=== PATIENT | male | born 1980 | race Caucasian/White ===

== ENCOUNTER 2021-04-25 19:20 | Emergency (ER) | payer OTHER, SELFPAY ==
--- NOTE | 2021-04-25 19:28 | ECG_ITS ---
Measurements Intervals [place] Rate: 60 P: 48 RI: 140 QRS: 50 QRSD: 92 T: 22 QT: 390 QTc: 392 Interpretive Statements SINUS RHYTHM BORDERLINE R WAVE PROGRESSION, ANTERIOR LEADS BORDERLINE T WAVE ABNORMALITY- INFERIOR LEADS BORDERLINE ECG Electronically Signed On 04-26-2021 16:06:33 CDT by Tyron Owens D.O.
[2021-04-25 19:40] LABS: Basophils Percent Auto 0.6 % (0.2-1.2); Eosinophils Percent Auto 0.6 % (0-4.4); Hematocrit 40.1 % (42.0-52.0); Hemoglobin 13.6 g/dL (14.0-18.0); Immature Granulocyte Absolute 0.01 K/mm3 (0.00-0.031); Immature Granulocyte Percent A 0.3 % (0-0.5); Lymphocytes Absolute Auto 1.14 K/mm3 (0.9-3.2); Lymphocytes Percent Auto 33.9 % (18.3-44.2); Mean Corpuscular HGB Conc 33.9 g/dl (32-36); Mean Corpuscular Hemoglobin 29.8 pg (26-34); Mean Corpuscular Volume 87.7 fl (80-100); Mean Platelet Volume 9.5 fl (7.4-10.4); Monocytes Absolute Auto 0.5 K/mm3 (0.1-0.6); Monocytes Percent Auto 15.5 % (2.6-8.5); Neutrophils Absolute Auto 1.7 K/mm3 (1.3-6.7); Neutrophils Percent Auto 49.1 % (45.5-73.1); Platelet Count Result 190 k/mm3 (150-375); Red Blood Count 4.57 M/mm3 (4.6-6.20); Red Cell Distribution Width 12.1 % (11.5-14.5); White Blood Count 3.4 K/mm3 (4.5-10.0)
[2021-04-25 19:41] VITALS: BP 106/67; PULSE 65; RESP 20; TEMP 37.2; O2SAT 98
[2021-04-25 19:51] LABS: Anion Gap 16 mmol/L (8-16); Blood Urea Nitrogen 14 mg/dL (9-20); Calcium 8.7 mg/dL (8.4-10.2); Carbon Dioxide 26 mmol/L (22-30); Chloride 94 mmol/L (98-107); Estimated CRCL calculation 100 ml/min; Estimated Glomerular Filt Rate > 60; Glucose 86 mg/dL (65-110); Potassium 4.3 mmol/L (3.4-5.0); Sodium 136 mmol/L (137-145)
[2021-04-25 20:48] VITALS: TEMP 36.3
[2021-04-25 22:03] LABS: EDCOVIDSCREEN Positive (Negative)
[2021-04-25] MEDS: ONDANSETRON HCL ODT 4 MG TABLET PO (22:06)
--- NOTE | 2021-04-25 22:16 | ED.GENADULT ---
HPI - General Adult General Chief complaint: Dizziness Stated complaint: high fever, dizziness, stomach ache Time Seen by Provider: 04/25/21 21:00 History of Present Illness HPI narrative: Patient is a 41-year-old male who presents ER with concern for COVID-19. Symptoms going on for 2 days. Associated with fevers and chills. He has headache with loss of taste and smell. No chest pain or chest pressure. Does have some mild abdominal discomfort with nausea. No known sick contacts. He is unvaccinated. Related Data Allergies Allergy/AdvReac Type Severity Reaction Status Date / Time No Known Allergies Allergy Verified 04/25/21 20:50 Review of Systems Review of Systems: All systems reviewed & are unremarkable except as noted in HPI and below Constitutional: Constitutional: Reports chills, Reports fatigue and Reports fever(s) ENT: Denies nasal congestion and Reports sore throat Cardiovascular: Cardiovascular: Denies chest pain and Denies radiating jaw, neck or arm pain Respiratory: Respiratory: Denies chest congestion, Reports cough, Denies dyspnea and Denies wheezing Gastrointestinal: Gastrointestinal: Reports abdominal pain, Reports nausea and Denies vomiting PMFSH Past Medical History Medical History (Updated 04/25/21 @ 22:19 by Kb Montemayor MD) Healthy adult male Surgical History Surgical History (Updated 04/25/21 @ 22:17 by Kb Montemayor MD) No history of previous surgery Exam Narrative: GENERAL: Well-appearing, well-nourished, and in no acute distress. HEAD: Normocephalic, atraumatic. ENT: Mucous membranes moist. Pharyngeal erythema or tonsillar exudate. Uvula midline and nonedematous. NECK: Supple. Mild anterior cervical chain lymphadenopathy. CHEST: Clear to auscultation. No respiratory distress. HEART: Regular rate and rhythm. Normal peripheral pulses. ABDOMEN: Soft, nontender, nondistended. EXTREMITIES: Normal range of motion. No edema. NEURO: Alert and oriented x3. PSYCH: Normal mood and affect. Course Course Emergency Course: Patient informed results. Discussed return precautions. Discharge home. Vital Signs Vital signs: Vital Signs Temperature 98.9 F 04/25/21 19:41 Pulse Rate 65 04/25/21 19:41 Respiratory Rate 20 04/25/21 19:41 Blood Pressure 106/67 04/25/21 19:41 Pulse Oximetry 98 04/25/21 19:41 Temperature 97.4 F L 04/25/21 20:48 Pulse Rate 65 04/25/21 19:41 Respiratory Rate 20 04/25/21 19:41 Blood Pressure 106/67 04/25/21 19:41 Pulse Oximetry 98 04/25/21 19:41 Medical Decision Making Vital Signs Vital Signs: Vital Signs Temperature 98.9 F 04/25/21 19:41 Pulse Rate 65 04/25/21 19:41 Respiratory Rate 20 04/25/21 19:41 Blood Pressure 106/67 04/25/21 19:41 Pulse Oximetry 98 04/25/21 19:41 Temperature 97.4 F L 04/25/21 20:48 Pulse Rate 65 04/25/21 19:41 Respiratory Rate 20 04/25/21 19:41 Blood Pressure 106/67 04/25/21 19:41 Pulse Oximetry 98 04/25/21 19:41 Lab Data Result diagrams: 04/25/21 19:35 04/25/21 19:35 Labs: Lab Results 04/25/21 04/25/21 04/25/21 Range/Units 19:35 19:35 21:26 WBC 3.4 L (4.5-10.0) K/mm3 RBC 4.57 L (4.6-6.20) M/mm3 Hgb 13.6 L (14.0-18.0) g/dL Hct 40.1 L (42.0-52.0) % MCV 87.7 (80-100) fl MCH 29.8 (26-34) pg MCHC 33.9 (32-36) g/dl RDW 12.1 (11.5-14.5) % Plt Count 190 (150-375) k/mm3 MPV 9.5 (7.4-10.4) fl Immature Gran % (Auto) 0.3 (0-0.5) % Neut % (Auto) 49.1 (45.5-73.1) % Lymph % (Auto) 33.9 (18.3-44.2) % Citrus % (Auto) 15.5 H (2.6-8.5) % Eos % (Auto) 0.6 (0-4.4) % Baso % (Auto) 0.6 (0.2-1.2) % Lymph # (Auto) 1.14 (0.9-3.2) K/mm3 Citrus # (Auto) 0.5 (0.1-0.6) K/mm3 Eos # (Auto) 0.0 (0-0.3) K/mm3 Baso # (Auto) 0.0 (0.0-0.1) K/mm3 Abs Immat Gran (auto) 0.01 (0.00-0.031) K/mm3 Absolute Neuts (auto) 1.7 (1.3-6.7) K/mm
[2021-04-25 22:54] VITALS: BP 108/79; PULSE 58; RESP 18; TEMP 36.6; O2SAT 99
== END 2021-04-25 22:36 | disposition home or self-care (01) ==
PROVIDERS: Family Medicine; Emergency Provider Emergency Medicine
DX: U07.1 COVID-19 (principal)
CPT/HCPCS: 36415; 80048; 85025; 87426; 93005; 99283; A9270; C9803

== ENCOUNTER 2022-05-16 21:10 | Emergency (ER) | payer OTHER, SELFPAY ==
[2022-05-16 21:16] VITALS: BP 156/89; PULSE 76; RESP 16; TEMP 36.8; O2SAT 99
--- NOTE | 2022-05-16 22:11 | PC.NURSE ---
patient left without being seen and before xray. states he will come back if needed.
== END 2022-05-16 22:11 | disposition left against medical advice (07) ==
DX: S69.92XA Unspecified injury of left wrist, hand and finger(s), initial encounter (principal)
CPT/HCPCS: 99199

== ENCOUNTER 2023-06-16 15:49 | Emergency (ER) | payer OTHER, SELFPAY ==
[2023-06-16 16:05] VITALS: BP 134/96; PULSE 80; RESP 16; TEMP 36.9; O2SAT 100
[2023-06-16 16:06] VITALS: BP 134/96; PULSE 80; RESP 16; TEMP 36.9; O2SAT 100
--- NOTE | 2023-06-16 16:12 | ED.EAR ---
HPI - Ear Problem General Chief complaint: Ear Stated complaint: right ear pain,tooth pain left/right side Time Seen by Provider: 06/16/23 16:12 Source: patient Mode of arrival: ambulatory Limitations: no limitations History of Present Illness HPI Narrative: 43 yo M presents with c/o dental pain. Reports multiple broken teeth. Often gets bubble to gum that he pops open himself . Is on waiting list at [facility] dental school. Is hoping to get several teeth pulled. Afebrile. All systems reviewed and negative except as noted above. Related Data Allergies Allergy/AdvReac Type Severity Reaction Status Date / Time erythromycin base Allergy Unknown Unknown Verified 06/16/23 16:05 Review of Systems Review of Systems: CONSTITUTIONAL: Denies fever, chills, or sweats. EYES: Denies visual changes, redness, or discharge. ENT: Denies rhinorrhea, congestion, sore throat, or otalgia. Reports dental pain CARDIOVASCULAR: Denies chest pain, palpitations, or edema. RESPIRATORY: Denies cough or dyspnea. GASTROINTESTINAL: Denies abdominal pain, nausea, vomiting, or diarrhea. GENITOURINARY: Denies dysuria or hematuria. SKIN: Denies rash or itching. MUSCULOSKELETAL: Denies back pain, joint pain, or myalgia. NEUROLOGIC: Denies headache, numbness, or weakness. PSYCHIATRIC: Denies anxiety or depression. All other systems reviewed are negative, except as documented in HPI. [facility] Past Medical History Medical History (Updated 06/16/23 @ 16:17 by Gracy Novoa NP) Healthy adult male Surgical History Surgical History (System 10/19/21 @ 16:26 by Michelle Gaspar) No history of previous surgery Comments At time of signature, agree with nursing past medical, surgical, social and family history. There is no relevant family history pertinent to the presenting complaint. Exam Narrative: GENERAL: This is a well-nourished, well-developed patient, in no apparent distress. HEAD: normocephalic, atraumatic. EYES: PERRL. Sclera clear/white. Vision is grossly intact. EARS: External ears normal, auditory canals clear and without drainage, TMs normal without perforation. Hearing grossly intact. NOSE: External nose normal THROAT: Mucous membranes moist, posterior pharynx clear. MOUTH: multiple decayed/broken teeth. black coloring at the base of several upper and lower teeth. some teeth are broken down to gumline. some swelling and redness to gums but no abscess noted. NECK: Neck supple, non-tender without lymphadenopathy, masses or thyromegaly. CARDIOVASCULAR: Regular rate and rhythm without murmurs, gallops, or rubs. RESPIRATORY: Clear to auscultation. Breath sounds equal bilaterally. No wheezes, rales, or rhonchi. SKIN: warm, Dry, intact with no suspicious lesions or rash, good texture and turgor. NEURO: awake, alert, and oriented to person, place and time. There were no obvious focal neurologic abnormalities. EXTREMITIES: No joint tenderness, effusion, or edema noted. Course Course Level of Care: Express Care Visit Vital Signs Vital signs: Vital Signs Temperature 36.9 C 06/16/23 16:05 Pulse Rate 80 06/16/23 16:05 Respiratory Rate 16 06/16/23 16:05 Blood Pressure 134/96 H 06/16/23 16:05 Pulse Oximetry 100 06/16/23 16:05 Oxygen Delivery Room Air 06/16/23 16:05 Temperature 36.9 C 06/16/23 16:06 Pulse Rate 80 06/16/23 16:06 Respiratory Rate 16 06/16/23 16:06 Blood Pressure 134/96 H 06/16/23 16:06 Pulse Oximetry 100 06/16/23 16:06 Oxygen Delivery Room Air 06/16/23 16:06 reviewed Medical Decision Making MDM Narrative Medical decision making narrative: Patient is aware of diagnosis, understands and agrees to treatment plan. Anticipatory guidance given. Patient agrees to follow-up as directed and is aware of reasons to seek care at the emergency department. Portions of this record may have been created with voice recognition software given dental referral for Ousmane PRASAD and Juan David booker
== END 2023-06-16 16:20 | disposition home or self-care (01) ==
PROVIDERS: Emergency Provider Nurse Practitioner Family
DX: K04.7 Periapical abscess without sinus (principal); H65.03 Acute serous otitis media, bilateral
CPT/HCPCS: 99213; G0463

== ENCOUNTER 2023-08-22 18:45 | Emergency (ER) | payer OTHER, SELFPAY ==
[2023-08-22 19:04] VITALS: BP 123/79; PULSE 83; RESP 16; TEMP 36.2; O2SAT 99
--- NOTE | 2023-08-22 19:15 | ED.DENTAL ---
HPI - Dental/Oral General Chief complaint: Dental/Oral Stated complaint: tooth issue Source: patient Mode of arrival: ambulatory History of Present Illness HPI Narrative: 43-year-old male presented for complaint of left lower dental pain for about 3 days. He has poor dentition throughout, and plans to follow up with the dental school but is on the waiting list. Taking ibuprofen for symptoms. MD Complaint: tooth pain Related Data Allergies Allergy/AdvReac Type Severity Reaction Status Date / Time erythromycin base Allergy Intermediate Vomiting Verified 08/22/23 19:12 Review of Systems Review of Systems: CONSTITUTIONAL: Denies body aches, fever, chills ENT: Denies rhinorrhea, congestion, sore throat, or otalgia. Reports dental pain CARDIOVASCULAR: Denies chest pain, palpitations RESPIRATORY: Denies cough or dyspnea. SKIN: Denies rash, itching, or wounds. MUSCULOSKELETAL: Denies myalgia. NEUROLOGIC: Denies headache, numbness, tingling, or weakness. [facility] Past Medical History Medical History Healthy adult male Surgical History Surgical History No history of previous surgery Comments At time of signature, I have reviewed and agree with nursing past medical, surgical, social and family history unless otherwise noted. Please see nursing chart for further information. There is no relevant family history pertinent to the presenting complaint Exam Narrative: GENERAL: Appears in mild pain; no acute distress. EYES: EOMI. No redness or drainage. Conjunctivae normal. ENT: Dental pain location of #20-22, teeth are broken and black in color; minimal swelling to gum, mild tenderness with palpation. poor dentition throughout. Also reports occasional pain #4, broken to gumline; no swelling or apparent abscess. Mucous membranes pink and moist. TMs normal bilaterally. Throat normal. Uvula midline. NECK: Normal AROM. No lymphadenopathy or induration below mandible. CHEST: Clear to auscultation. HEART: Regular rate and rhythm. No murmur appreciated. SKIN: Warm, dry, no rash. Normal skin turgor. NEURO: Alert and oriented Course Course Emergency Course: Patient is aware of diagnosis, understands and agrees to treatment plan. Anticipatory guidance given. Patient agrees to follow-up as directed and is aware of reasons to seek care at the emergency department. Portions of this record may have been created with voice recognition software Level of Care: Express Care Visit Vital Signs Vital signs: Vital Signs Temperature 97.2 F L 08/22/23 19:04 Pulse Rate 83 08/22/23 19:04 Respiratory Rate 16 08/22/23 19:04 Blood Pressure 123/79 08/22/23 19:04 Pulse Oximetry 99 08/22/23 19:04 Oxygen Delivery Room Air 08/22/23 19:04 Temperature 97.2 F L 08/22/23 19:04 Pulse Rate 83 08/22/23 19:04 Respiratory Rate 16 08/22/23 19:04 Blood Pressure 123/79 08/22/23 19:04 Pulse Oximetry 99 08/22/23 19:04 Oxygen Delivery Room Air 08/22/23 19:04 MDM - Dental/Oral MDM Narrative Medical decision making narrative: Patients pain and complaint coupled with physical findings are consistent with dentalgia. No apparent abscess. There are no focal signs of space occupying lesions that are compromising to the airway; no dysphagia, odynophagia, dysphonia, or dyspnea. No uvular deviation or soft palate edema. Patient is non-toxic appearing. The floor of the mouth is soft with no signs of Rosendo's Angina; no induration below mandible, no neck pain. Patient is without trismus or drooling and able to swallow secretions. Discussed physical exam findings. Advised supportive measures and signs/symptoms to go to the ER. Pt is appropriate for outpt treatment and f/u. Differential Diagnosis Differential diagnosis: Likely gingival abscess, dental caries, toothache, dental abscess, fracture of tooth an
== END 2023-08-22 19:24 | disposition home or self-care (01) ==
PROVIDERS: Emergency Provider Nurse Practitioner Family
DX: K02.9 Dental caries, unspecified (principal)
CPT/HCPCS: 99213; G0463

== ENCOUNTER 2023-12-02 09:08 | Emergency (ER) | payer OTHER, SELFPAY ==
[2023-12-02 09:15] VITALS: BP 150/96; PULSE 60; RESP 16; TEMP 36.4; O2SAT 100
--- NOTE | 2023-12-02 10:00 | ED.DENTAL ---
HPI - Dental/Oral General Chief complaint: Dental/Oral Stated complaint: tooth lower left Time Seen by Provider: 12/02/23 09:18 History of Present Illness HPI Narrative: 43-year-old male presents to the emergency department for left lower tooth pain that started yesterday. Patient reports he has had intermittent dental pain to the left lower jaw for quite a while. He is on a wait list for [facility] to have his teeth extracted on this side. He states he has had use intermittent antibiotics secondary to pain. He is requesting a nerve block. He denies difficulty swallowing or breathing, fever, vomiting, trismus. Related Data Allergies Allergy/AdvReac Type Severity Reaction Status Date / Time erythromycin base Allergy Intermediate Vomiting Verified 12/02/23 09:17 Review of Systems Review of Systems: CONSTITUTIONAL: Denies fever, chills, or sweats. EYES: Denies visual changes, redness, or discharge. ENT: See HPI CARDIOVASCULAR: Denies chest pain, palpitations, or edema. RESPIRATORY: Denies cough or dyspnea. GASTROINTESTINAL: Denies abdominal pain, nausea, vomiting, or diarrhea. GENITOURINARY: Denies dysuria or hematuria. SKIN: Denies rash or itching. MUSCULOSKELETAL: Denies back pain, joint pain, or myalgia. NEUROLOGIC: Denies headache, numbness, or weakness. PSYCHIATRIC: Denies anxiety or depression. [facility] Past Medical History Medical History Healthy adult male Surgical History Surgical History No history of previous surgery Exam Narrative: GENERAL: Well-appearing, well-nourished, and in no acute distress. HEAD: Normocephalic, atraumatic. EYES: PERRLA and EOMI. ENT: Nares clear, no rhinorrhea or epistaxis. Mucous membranes moist. Severely carried and necrotic teeth along the left lower jaw including tooth 18., 19, 20 and 21. Mild amount of erythema and edema to the gum line. No periapical abscess or facial edema. No submandibular edema. No trismus. Patient tolerating secretions and speaking in full sentences. No airway compromise. Posterior pharynx without erythema or edema, uvula is midline. Floor of mouth is soft without crepitus. NECK: Supple. CHEST: Clear to auscultation. No respiratory distress. HEART: Regular rate and rhythm. No murmur heard. Normal peripheral pulses. EXTREMITIES: Normal range of motion. No edema. SKIN: Warm, dry, no rash. NEURO: No focal deficits. Alert and oriented x3 Course Vital Signs Vital signs: Vital Signs Temperature 97.6 F 12/02/23 09:15 Pulse Rate 60 12/02/23 09:15 Respiratory Rate 16 12/02/23 09:15 Blood Pressure 150/96 H 12/02/23 09:15 Pulse Oximetry 100 12/02/23 09:15 Oxygen Delivery Room Air 12/02/23 09:15 Temperature 97.6 F 12/02/23 09:15 Pulse Rate 60 12/02/23 09:15 Respiratory Rate 16 12/02/23 09:15 Blood Pressure 150/96 H 12/02/23 09:15 Pulse Oximetry 100 12/02/23 09:15 Oxygen Delivery Room Air 12/02/23 09:15 Procedures Nerve Block Nerve Block 1: Nerve block date: 12/02/23 Nerve block time: 11:02 Time out performed: Yes Local Anesthetic: bupivacaine 0.25% Amount of anesthesia used (mL): 1.5 Side: left Intraoral Nerve Block: inferior alveolar Procedure Successful: Yes Patient Tolerated Procedure: well Complications: none MDM - Dental/Oral MDM Narrative Medical decision making narrative: 43-year-old male presents to emergency department for left lower jaw dental pain since yesterday. Triage vital significant for blood pressure 150/96, otherwise unremarkable. He is afebrile and nontoxic appearing. Exam is significant for the above. No airway compromise, is able tolerate secretions. No evidence of deep space infection. Was given a dose of Augmentin here, remainder sent to the pharmacy. He was given a infra-alveolar block with
[2023-12-02] MEDS: AMOXICILLIN/CLAVULANATE K 875-125 MG TAB 1 TABLET PO (10:10)
[2023-12-02 11:13] VITALS: BP 132/86; PULSE 72; RESP 15; O2SAT 98
== END 2023-12-02 11:14 | disposition home or self-care (01) ==
PROVIDERS: Emergency Provider Physician Assistant
DX: K02.9 Dental caries, unspecified (principal)
CPT/HCPCS: 64400; 64999; 99283; A9270

== ENCOUNTER 2024-02-17 17:59 | Emergency (ER) | payer OTHER, SELFPAY ==
--- NOTE | 2024-02-17 18:01 | ED.DENTAL ---
HPI - Dental/Oral General Chief complaint: Dental/Oral Stated complaint: tooth pain left side,right eye red Time Seen by Provider: 02/17/24 18:01 Source: patient Mode of arrival: ambulatory Limitations: no limitations History of Present Illness HPI Narrative: Theo is a 43-year-old male patient presenting to the clinic today with complaints of dental pain on the left lower side and right eye redness. He is also requesting a refill of his fluticasone inhaler. He denies any fever chills. States he woke up this morning with his eyes croupy and some yellow discharge coming from the right eye and is now noticing some discharge coming from the left eye. States he has a dental infection to the left lower teeth. He has severe fracture decayed lower bottom teeth that are need to be pulled. He states he has not been able to yet get into a dentist. Related Data Allergies Allergy/AdvReac Type Severity Reaction Status Date / Time erythromycin base Allergy Intermediate Vomiting Verified 12/02/23 09:17 Review of Systems Review of Systems: Pertinent positives per HPI. Patient denies any fever, chills, rash, headache, visual changes, dizziness, cough, runny nose, sore throat, shortness of breath, chest pain, palpitations, nausea, vomiting, diarrhea, constipation, abdominal pain, or any urinary issues. PMFSH Past Medical History Medical History Healthy adult male Surgical History Surgical History No history of previous surgery Comments At the time of my signature, I reviewed and agree with the nursing past medical, surgical, social, and family history. There is no relevant family history pertinent to the patient complaint. Exam Narrative: General: Well-developed, well nourished, in no apparent distress Head: Normocephalic, atraumatic Eyes: Pupils equally round and reactive to light bilaterally, EOM intact, sclera and conjunctive injected with yellow mucopurulent discharge, mild lids swelling Ears: TMs intact and clear, ear canals clear, no drainage, grossly hearing normal. Nose: Nares patent, clear discharge, no inflammation, no sinus tenderness. Mouth: Oropharynx without lesions or masses, poor dentition, MMM. Multiple decayed teeth with redness and swelling of the gums to the left lower jaw Neck: Supple, trachea midline, no enlargement of anterior or posterior cervical nodes, no thyroid masses or goiter palpable. Cardio: Regular rate and rhythm, s1 and s2 normal, no murmur appreciated. Resp: Clear to auscultation bilaterally anteriorly and posteriorly, no rhonchi, rales, wheezing or rubs Course Course Emergency Course: Portions of this record may have been created with voice recognition software. Level of Care: Express Care Visit Vital Signs Vital signs: Vital signs reviewed MDM - Dental/Oral MDM Narrative Medical decision making narrative: At the time of visit patient is resting comfortably on the exam table. Patient appears to be nontoxic. Plan: I suspect patient has conjunctivitis with the dental infection. Prescription for Augmentin and polymyxin eyedrops were sent to the pharmacy. Patient is also requesting refill of his fluticasone inhaler. This was sent to the pharmacy as well. Supportive measures were discussed with the patient and they voiced understanding discharge instructions and agrees to treatment plan. Return precautions reviewed Differential Diagnosis Differential diagnosis: Likely gingival abscess, dental caries, toothache, dental abscess, fracture of tooth, aphthous ulcer and other (Conjunctivitis, asthma) Discharge Plan Discharge Clinical Impression: Dental infection Conjunctivitis Qualifiers: Conjunctivitis type: acute Acute conjunctivitis type: bacterial Laterality: bilateral Qualified Code(s): H10.33 - Unspecified acute conjunctivitis, bilateral [place]
[2024-02-17 18:05] VITALS: BP 122/82; PULSE 81; RESP 16; TEMP 36.7; O2SAT 100
[2024-02-17 18:11] VITALS: BP 122/82; PULSE 81; RESP 16; TEMP 36.7; O2SAT 100
== END 2024-02-17 18:20 | disposition home or self-care (01) ==
PROVIDERS: Emergency Provider Nurse Practitioner Family
DX: K04.7 Periapical abscess without sinus (principal); H10.33 Unspecified acute conjunctivitis, bilateral
CPT/HCPCS: 99213; G0463

== ENCOUNTER 2024-03-26 19:22 | Emergency (ER) | payer OTHER, SELFPAY ==
[2024-03-26 19:30] VITALS: BP 135/86; PULSE 70; RESP 16; TEMP 36.8; O2SAT 100
--- NOTE | 2024-03-26 19:38 | ED.DENTAL ---
HPI - Dental/Oral General Chief complaint: Dental/Oral Stated complaint: Dental Pain Time Seen by Provider: 03/26/24 19:38 Mode of arrival: ambulatory Limitations: no limitations History of Present Illness HPI Narrative: 44-year-old male presents with concern for left lower dental pain. He reports he has had problems in that area of his mouth for quite some time, he has got several broken teeth. He has been trying to get into a dentist but is not had any luck. MD Complaint: tooth pain Related Data Home Medications Medication Instructions Recorded Confirmed fluticasone propionate 44 1 puff inhalation BID 03/26/24 03/26/24 mcg/actuation HFA aerosol inhaler Allergies Allergy/AdvReac Type Severity Reaction Status Date / Time erythromycin base Allergy Intermediate Vomiting Verified 03/26/24 19:23 Review of Systems Review of Systems: CONSTITUTIONAL: Denies malaise, chills, sweats, or fever. EYES: Denies visual changes ENT: Denies rhinorrhea, congestion, sinus pain, otalgia or sore throat. Reports left lower dental pain CARDIOVASCULAR: Denies chest pain, palpitations RESPIRATORY: Denies cough or dyspnea. SKIN: Denies rash or itching. MUSCULOSKELETAL: Denies myalgia. NEUROLOGIC: Denies numbness, weakness, or headache. All systems reviewed & are unremarkable except as noted in HPI and below PMFSH Past Medical History Medical History Healthy adult male Surgical History Surgical History No history of previous surgery Comments At time of signature, agree with nursing past medical, surgical, social and family history. There is no relevant family history pertinent to the presenting complaint Exam Narrative: GENERAL: Well-appearing, well-nourished, and in no acute distress. HEAD: Normocephalic, atraumatic. EYES: PERRLA, sclera clear ENT: Nares clear, turbinates pink, no rhinorrhea or epistaxis. Mucous membranes moist. TM pearly sanford with sharp light reflex bilaterally; no tragal tenderness. Oropharynx without erythema or lesions. Tonsils not enlarged and without exudate. Missing teeth, broken teeth, caries NECK: Supple. No lymphadenopathy. CHEST: No respiratory distress. Speaks in full sentences. HEART: Regular rate and rhythm. SKIN: Warm, dry, no visible rash. NEURO: Alert and oriented x3. PSYCH: Normal mood and affect Course Course Emergency Course: Patient is aware of diagnosis, understands and agrees to treatment plan. Anticipatory guidance given. Patient agrees to follow-up as directed and is aware of reasons to seek care at the emergency department. Portions of this record may have been created with voice recognition software Level of Care: Express Care Visit Vital Signs Vital signs: Vital Signs Temperature 98.3 F 03/26/24 19:30 Pulse Rate 70 03/26/24 19:30 Respiratory Rate 16 03/26/24 19:30 Blood Pressure 135/86 03/26/24 19:30 Pulse Oximetry 100 03/26/24 19:30 Oxygen Delivery Room Air 03/26/24 19:30 Temperature 98.3 F 03/26/24 19:30 Pulse Rate 70 03/26/24 19:30 Respiratory Rate 16 03/26/24 19:30 Blood Pressure 135/86 03/26/24 19:30 Pulse Oximetry 100 03/26/24 19:30 Oxygen Delivery Room Air 03/26/24 19:30 Reviewed. MDM - Dental/Oral MDM Narrative Medical decision making narrative: I evaluated this in the [facility] care. History is obtained from patient who is an independent historian and physical exam was performed.? Available medical records were reviewed. ? Exam findings and relevant testing show no acute concerns or changes; patient is non-toxic appearing and is in no distress. Patients pain and complaint coupled with physical findings are consistant with dentalgia. There are no focal signs of space occupying lesions that are compromising to the airway; no dysphagia, odynophagia, dysphonia, or dyspnea. No uvular de
== END 2024-03-26 19:56 | disposition home or self-care (01) ==
PROVIDERS: Emergency Provider Nurse Practitioner
DX: K08.89 Other specified disorders of teeth and supporting structures (principal)
CPT/HCPCS: 99213; G0463

== ENCOUNTER 2024-06-04 19:46 | Emergency (ER) | payer OTHER, SELFPAY ==
[2024-06-04 19:46] VITALS: BP 134/75; PULSE 71; RESP 18; TEMP 36.8; O2SAT 100
--- NOTE | 2024-06-04 19:51 | ED.URI ---
HPI - URI/Sore Throat General Chief Complaint: Upper Respiratory Infection Stated Complaint: Sinus/Fever Time Seen by Provider: 06/04/24 19:54 Source: patient, RN notes reviewed and old records reviewed Mode of arrival: ambulatory Limitations: no limitations History of Present Illness HPI Narrative: 44-year-old male presents to the [facility] with complaints of cough, congestion for 1 week. Reports intermittent shortness of breath. Reports family members with similar symptoms Onset (ago): week(s) (1) Treatments prior to arrival: cold medicine Related Data Allergies Allergy/AdvReac Type Severity Reaction Status Date / Time erythromycin base Allergy Intermediate Vomiting Verified 06/04/24 19:48 Review of Systems Review of Systems: All systems reviewed & are unremarkable except as noted in HPI and below Constitutional: Constitutional: Reports no additional constitutional complaints Eyes: Eyes: Reports no additional eye complaints ENT: Reports system reviewed and no additional complaints, except as documented Cardiovascular: Cardiovascular: Reports no additional cardiovascular complaints, Denies chest pain and Denies dyspnea Respiratory: Respiratory: Reports as per HPI, Reports chest congestion, Reports cough and Reports dyspnea Gastrointestinal: Gastrointestinal: Reports no additional gastrointestinal complaints, Denies abdominal pain, Denies nausea and Denies vomiting Musculoskeletal: Musculoskeletal: Reports no additional musculoskeletal complaints Integumentary/Breasts: Skin/Breast: Reports system reviewed and no additional complaints, except as docu Neurologic: Reports system reviewed and no additional complaints, except as documented Psychiatric: Psychiatric: Reports no additional psychiatric complaints Allergic/Immunologic: Allergic/Immunologic: Reports no additional allergic/immunologic complaints PMFSH Past Medical History Medical History Healthy adult male Surgical History Surgical History No history of previous surgery Social History Social History (Updated 06/04/24 @ 20:05 by Giselle Olson APRN) Living arrangements: with family Gender identity (if verbalized by the patient): Male Comments At the time of my signature, I reviewed and agree with the nursing past medical, surgical, social, and family history. There is no relevant family history pertinent to the patient complaint. Exam Const: General: cooperative, healthy appearing, comfortable, no acute distress, well developed, alert and well nourished Nutritional Appearance: well nourished Orientation/consciousness: patient oriented x3 Limitations: no limitations HENMT: Head: normal to inspection Ears: hearing grossly normal bilaterally, external ears normal, TM's normal bilaterally, EAC's normal, mastoids normal and no periauricular adenopathy Face/Nose/Sinus: Normal external nose present, normal facial exam and face symmetric Face and sinus: normal facial exam and face symmetric Throat: posterior oropharynx normal, tonsils normal, uvula midline and no uvular edema Eyes: General: appearance normal, both eyes and all related structures Alignment and Position: alignment normal Periorbital: periorbital findings normal Neck: Neck: normal visual inspection, full ROM, no lymphadenopathy and no meningeal signs Chest: Chest palpation & inspection: normal inspection of the chest Resp: Effort & Inspection: normal respiratory effort, able to speak in complete sentences and Actively coughing Auscultation: clear to auscultation bilaterally, no crackles, no rales, no rhonchi and no wheezes Cardio: Rate: regular rate Rhythm: regular rhythm Skin: General skin exam: normal color and no rashes or lesions noted Lesions: no lesions Rashes: no rashes Trauma: no lacerations or abrasions Wounds: no wounds Neuro: General: patient ronal
[2024-06-04 20:11] LABS: EDCOVIDSCREEN Negative (Negative); EDINFLUASCREEN Negative (Negative); EDINFLUBSCREEN Negative (Negative)
== END 2024-06-04 20:15 | disposition home or self-care (01) ==
PROVIDERS: Emergency Provider Nurse Practitioner
DX: J40 Bronchitis, not specified as acute or chronic (principal); Z20.822 Contact with and (suspected) exposure to COVID-19
CPT/HCPCS: 87426; 87804; 99213; G0463

== ENCOUNTER 2024-07-15 19:50 | Emergency (ER) | payer OTHER, SELFPAY ==
[2024-07-15 19:57] VITALS: BP 113/77; PULSE 74; RESP 16; TEMP 35.9; O2SAT 99
--- NOTE | 2024-07-15 20:13 | ED_ITS ---
HPI - Nausea/Vomiting/Diarrhea General Chief complaint: Upper Respiratory Infection Stated complaint: throwing up,diarrhea,SHEPPARD Source: patient, RN notes reviewed and old records reviewed Mode of arrival: ambulatory Limitations: no limitations History of Present Illness HPI Narrative: Patient presents accompanied by his sons who are also seeking care today for the same symptoms. Patient reports 24 hours of nausea, vomiting, diarrhea along with headache. He denies fever, chills, sweats. He denies any abdominal pain. He does not appear to be in any distress. Reports that he is able to drink p.o. fluids without difficulty. He states that he has had a cough for a couple of weeks, does have some associated wheezing. Related Data Allergies Allergy/AdvReac Type Severity Reaction Status Date / Time doxycycline AdvReac Intermediate Vomiting Verified 07/15/24 20:13 erythromycin base AdvReac Intermediate Vomiting Verified 07/15/24 20:13 Review of Systems Review of Systems: All systems reviewed & are unremarkable except as noted in HPI and below Constitutional: Constitutional: Reports no additional constitutional complaints ENT: Reports system reviewed and no additional complaints, except as documented Cardiovascular: Cardiovascular: Reports no additional cardiovascular complaints Respiratory: Respiratory: Reports no additional respiratory complaints, Reports chest congestion and Reports cough Gastrointestinal: Gastrointestinal: Reports as per HPI, Reports no additional gastrointestinal complaints, Reports diarrhea, Reports nausea and Reports vomiting PMF Past Medical History Medical History Healthy adult male Surgical History Surgical History No history of previous surgery Social History Social History Living arrangements: with family Gender identity (if verbalized by the patient): Male Comments At the time of my signature, I reviewed and agree with the nursing past medical, surgical, social, and family history. There is no relevant family history pertinent to the patient complaint. Exam Const: General: cooperative, no acute distress, alert and awake Orientation/consciousness: oriented to person, oriented to place and oriented to time HENMT: Head: normal to inspection Mouth: Yes moist mucous membranes Resp: Effort & Inspection: normal respiratory effort and able to speak in complete sentences Auscultation: clear to auscultation bilaterally, no crackles, no rales, no rhonchi and wheezes scattered wheezes Cardio: Palpation: normal PMI Rate: regular rate Rhythm: regular rhythm Heart sounds: S1 normal heart sound present and S2 normal heart sound present GI: Inspection: normal to inspection GI Palp: Yes Soft to palpation, No Firmness to palpation present (GI), No Tenderness to palpation present (GI) and No Guarding due to palpation present (GI) Auscultation: normal bowel sounds Neuro: General: oriented to person, oriented to place and oriented to time Cranial nerves: Yes CN's II-XII intact bilaterally Psych: Appearance: grossly normal Thought process: Normal thought process present Insight: Good insight present (Psych) Judgement: Good judgement present (Psych) Course Course Level of Care: Express Care Visit Vital Signs Vital signs: Vital Signs Temperature 96.7 F L 07/15/24 19:57 Pulse Rate 74 07/15/24 19:57 Respiratory Rate 16 07/15/24 19:57 Blood Pressure 113/77 07/15/24 19:57 Pulse Oximetry 99 07/15/24 19:57 Oxygen Delivery Room Air 07/15/24 19:57 Temperature 96.7 F L 07/15/24 19:57 Pulse Rate 74 07/15/24 19:57 Respiratory Rate 16 07/15/24 19:57 Blood Pressure 113/77 07/15/24 19:57 Pulse Oximetry 99 07/15/24 19:57 Oxygen Delivery Room Air 07/15/24 19:57 Reviewed MDM - Nausea/Vomiting/Diarrhea MDM Narrative Medical decision making narrative: Reassuring physical exam, patient able to tolerate p.o. fluids. Supportive care measures discussed. Entire household sick with same symptoms, likely viral etiology. He does have cough that is not resolving for at least 2 weeks. Will start treatment for this. Is encouraged to follow with primary care provider. Emergency department for new or worse symptoms Discharge instructions reviewed with patient, as well as provided in writing per nursing staff. The instructions also include specific and strict return/GO TO THE ER as well as f/u information. All questions have been answered, and the patient deny any further questions with discharge and discharge plan. Some parts of this dictation were generated by voice recognition software and may contain typographical and/or grammatical inaccuracies. Differential Diagnosis Differential diagnosis: Likely traveler's diarrhea, food poisoning, gastroenteritis and clostridium difficile infection Medical Records Attestation: I reviewed the patient's medical records. Discharge Plan Discharge Clinical Impression: Bronchitis, Diarrhea Patient Disposition: Home, Self-Care Condition: Stable Instructions: Antibiotic Form, Acute Bronchitis (ED) Additional Instructions: take medications as prescribed. Follow with primary care provider. Emergency department for new o Patient Language: Occitan Prescriptions: New azithromycin 250 mg tablet See Rx Instructions .ROUTE .COMPLEX Qty: 6 0RF Rx Instructions: For 250 mg dose pack: take 500 mg today (day 1), then 250 mg for 4 days (days 2-5) albuterol sulfate [Ventolin HFA] 90 mcg/actuation HFA aerosol inhaler 2 puff inhalation QID PRN (Reason: shortness of breath or wheezing) Qty: 8.5 0RF prednisone 50 mg tablet 50 mg PO DAILY Qty: 3 0RF Follow-up/Referrals: PHYSICIAN,[employer]ER [Primary Care Provider] - Stand Alone Forms: Work/School Release IP Time of Disposition: 20:17
== END 2024-07-15 20:24 | disposition home or self-care (01) ==
PROVIDERS: Emergency Provider Nurse Practitioner Family
DX: J40 Bronchitis, not specified as acute or chronic (principal); R19.7 Diarrhea, unspecified
CPT/HCPCS: 99213; G0463

== ENCOUNTER 2025-06-25 19:06 | Emergency (ER) | payer OTHER, SELFPAY ==
[2025-06-25 19:13] VITALS: BP 135/79; PULSE 84; RESP 18; TEMP 36.7; O2SAT 100
--- NOTE | 2025-06-25 19:38 | ED.DENTAL ---
HPI - Dental/Oral General Stated complaint: tooth pain Source: patient and RN notes reviewed Mode of arrival: ambulatory Limitations: no limitations History of Present Illness HPI Narrative: 45-year-old male patient presents to the [facility] complaining of dental pain for the last 2-3 days. She has a history gross tooth decay and dental infections, he says he is on the wait list for [employer] [facility] but says he is a year out. Patient is reporting worsening redness and swelling and pain throughout his mouth. Primarily to the left lower mouth and right upper mouth. Patient denies any difficulty clearing secretions, dysphagia, locked jaw, fevers, body aches, chills, difficulty breathing, or any other symptoms. Related Data Allergies Allergy/AdvReac Type Severity Reaction Status Date / Time doxycycline AdvReac Intermediate Vomiting Verified 07/15/24 20:13 erythromycin base AdvReac Intermediate Vomiting Verified 07/15/24 20:13 Review of Systems Review of Systems: CONSTITUTIONAL: Denies fever, chills, or sweats. EYES: Denies visual changes, redness, or discharge. ENT: Denies rhinorrhea, congestion, sore throat, dysphagia, difficulty clearing secretions, or otalgia. OROPHARYNX: Positive for dental pain and swelling. CARDIOVASCULAR: Denies chest pain, palpitations, or edema. RESPIRATORY: Denies cough or dyspnea. GASTROINTESTINAL: Denies abdominal pain, nausea, vomiting, or diarrhea. GENITOURINARY: Denies dysuria or hematuria. SKIN: Denies rash or itching. MUSCULOSKELETAL: Denies back pain, joint pain, or myalgia. NEUROLOGIC: Denies headache, numbness, or weakness. PSYCHIATRIC: Denies anxiety or depression. All other systems reviewed are negative, except as documented in HPI. [facility] Past Medical History Medical History Healthy adult male Surgical History Surgical History No history of previous surgery Social History Social History Living arrangements: with family Gender identity (if verbalized by the patient): Male Comments At the time of my signature, I reviewed and agree with the nursing past medical, surgical, social, and family history. There is no relevant family history pertinent to the patient complaint. Exam Narrative: GENERAL: This is a well-nourished, well-developed adult, in no apparent distress. They are non ill-appearing, nontoxic appearing. HEAD: normocephalic, atraumatic. EYES: Sclera clear/white. Vision is grossly intact. Extraocular movements intact. Conjunctiva normal. EARS: External ears normal, auditory canals clear and without drainage, TMs without erythema or perforation. Hearing grossly intact. NOSE: External nose normal with no obvious nasal discharge, nasal turbinates without redness, no rhinorrhea. THROAT: Mucous membranes moist, posterior pharynx without erythema or exudate. Uvula is midline. OROPHARYNX: Gross tooth decay present. Gingivitis present. Left lower gum is erythematous and tender to palpate. Right upper gum is erythematous and tender to palpate. No area of fluctuance, no induration. No exudate. Tongue midline. No pain or swelling under the tongue. No trismus. NECK: Neck supple, non-tender without lymphadenopathy, masses or thyromegaly. CARDIOVASCULAR: Regular rate and rhythm RESPIRATORY: Respiratory rate normal, respiratory effort nonlabored, no respiratory distress SKIN: warm, Dry, intact with no suspicious lesions or rash, good texture and turgor. NEURO: awake, alert, and oriented to person, place and time. There were no obvious focal neurologic abnormalities. EXTREMITIES: No joint tenderness, effusion, or edema noted. Course Course Emergency Course: Portions of this record may have been created with voice recognition software Level of Care: Express Care Visit Vital Signs Vital signs: Vital Signs Temperature 98.0 F 06/25/25 19:13 Pulse Rate 84 06/25/25 19:13 Respiratory Rate 18 06/25/25 19:13 Blood Pressure 135/79 06/25/25 19:13 Pulse Oximetry 100 06/25/25 19:13 Oxygen Delivery Room Air 06/25/25 19:13 Temperature 98.0 F 06/25/25 19:13 Pulse Rate 84 06/25/25 19:13 Respiratory Rate 18 06/25/25 19:13 Blood Pressure 135/79 06/25/25 19:13 Pulse Oximetry 100 06/25/25 19:13 Oxygen Delivery Room Air 06/25/25 19:13 Reviewed MDM - Dental/Oral MDM Narrative Medical decision making narrative: Appears patient has multiple dental abscess infections. Nausea swelling to the face. No systemic symptoms. Patient nontoxic appearing, no apparent distress. Patient has no problem with clearing secretions, no dysphagia trismus, no breathing problems. No pain or swelling of the tongue. Will treat him with Augmentin. Discussed physical exam findings. Advised supportive measures and signs/symptoms to go to the ER. Pt is appropriate for outpt treatment and f/u. Differential Diagnosis Differential diagnosis: Likely gingival abscess, dental caries, toothache and dental abscess Critical Care Time Critical Care Time Critical Care Time: No Discharge Plan Discharge Clinical Impression: Dental infection Patient Disposition: Home Condition: Stable Instructions: Antibiotic Form, Dental Abscess (ED) Additional Instructions: Take the antibiotics as directed. You may alternate Tylenol and ibuprofen as needed for pain. Follow instructions on the bottle. Pearce your teeth and floss at least 2 times a day. You may use mouthwash after each brushing as well. Follow-up with dentist as soon as possible. He developed worsening swelling, fevers, difficulty swallowing or breathing, difficulty opening her jaw, swelling under the tongue, or any other concerns please go to the ER immediately. Patient Language: Amharic Prescriptions: New amoxicillin-pot clavulanate 875-125 mg tablet 1 tablet PO Q12H 10 Days Qty: 20 0RF No Action azithromycin 250 mg tablet See Rx Instructions .ROUTE .COMPLEX Qty: 6 0RF Rx Instructions: For 250 mg dose pack: take 500 mg today (day 1), then 250 mg for 4 days (days 2-5) albuterol sulfate [Ventolin HFA] 90 mcg/actuation HFA aerosol inhaler 2 puff inhalation QID PRN (Reason: shortness of breath or wheezing) Qty: 8.5 0RF prednisone 50 mg tablet 50 mg PO DAILY Qty: 3 0RF Follow-up/Referrals: PHYSICIAN,DIRECTOR HOSPICE OPERATIONS [Primary Care Provider, Internal Medicine] Time of Disposition: 19:37
== END 2025-06-25 19:39 | disposition home or self-care (01) ==
DX: K04.7 Periapical abscess without sinus (principal)
CPT/HCPCS: 99213; G0463

== ENCOUNTER 2025-08-21 19:03 | Emergency (ER) | payer OTHER, SELFPAY ==
--- NOTE | 2025-08-21 19:08 | ED_ITS ---
HPI - URI/Sore Throat General Chief Complaint: Upper Respiratory Infection Stated Complaint: Flu Symptoms Time Seen by Provider: 08/21/25 19:05 Source: patient Mode of arrival: ambulatory Limitations: no limitations History of Present Illness HPI Narrative: Patient is a 45-year-old male that presents with chills, headache, sore throat, chest congestion cough that started this morning. Concern for flu or COVID as he was around his grand kids on [place] that were also sick. Has taken Tylenol for symptoms. Related Data Home Medications ?Medication ?Instructions ?Recorded ?Confirmed ?Last Taken ?Type No Home Medications 08/21/25 08/21/25 U nknown History Allergies Allergy/AdvReac Type Severity Reaction Status Date / Time doxycycline AdvReac Intermediate Vomiting Verified 08/21/25 19:35 erythromycin base AdvReac Intermediate Vomiting Verified 08/21/25 19:35 Review of Systems Review of Systems: All systems reviewed & are unremarkable except as noted in HPI and below Constitutional: Constitutional: Reports chills, Denies fatigue, Denies fever(s), Reports headache(s), Denies malaise and Denies weakness Eyes: Eyes: Denies blurry vision, Denies itchy eyes and Denies loss of vision ENT: Denies otalgia, Reports headache(s), Denies nasal congestion, Denies sinus pain and Reports sore throat Cardiovascular: Cardiovascular: Denies chest pain, Denies irregular heart rhythm and Denies dyspnea Respiratory: Respiratory: Reports chest congestion, Reports cough and Denies dyspnea Gastrointestinal: Gastrointestinal: Denies abdominal pain, Denies diarrhea, Denies nausea and Denies vomiting Musculoskeletal: Musculoskeletal: Denies back pain, Denies myalgias and Denies arthralgias Integumentary/Breasts: Skin/Breast: Denies pruritus and Denies rash Neurologic: Reports headache(s), Denies loss of vision and Denies weakness Psychiatric: Psychiatric: Reports no additional psychiatric complaints Endocrine: Endocrine: Denies fatigue Allergic/Immunologic: Allergic/Immunologic: Denies itchy eyes PMFSH Past Medical History Medical History Healthy adult male Surgical History Surgical History No history of previous surgery Social History Social History Living arrangements: with family Gender identity (if verbalized by the patient): Male Comments At time of signature, agree with nursing past medical, surgical, social and family history. There is no relevant family history pertinent to the presenting complaint. Exam Const: General: cooperative, healthy appearing, comfortable, no acute distress and well nourished Nutritional Appearance: well nourished Orientation/consciousness: patient oriented x3 Limitations: no limitations HENMT: Head: normal to inspection, normocephalic and atraumatic Ears: hearing grossly normal bilaterally, external ears normal, TM's normal bilaterally, EAC's normal and no periauricular adenopathy Face/Nose/Sinus: Normal external nose present, Abnormal mucous membranes and turbinates present erythematous bilateral and diffuse, normal facial exam, sinuses nontender and face symmetric Face and sinus: normal facial exam, sinuses nontender and face symmetric Mouth: Yes Normal oral and palatal mucosa present, Yes lip normal, Yes tongue normal, Yes Normal salivary glands and ducts present, Yes oropharynx normal and Yes moist mucous membranes Teeth and gingiva: dentition normal Throat: posterior oropharynx normal, tonsils normal and uvula midline Eyes: General: appearance normal, both eyes and all related structures Alignment and Position: alignment normal and position normal Periorbital: periorbital findings normal Eyelids: eyelids normal Pupils: Equal, round and reactive pupils present Neck: Neck: normal visual inspection, full ROM, no lymphadenopathy and supple Chest: Chest palpation & inspection: normal inspection of the chest and normal palpation of entire chest wall Resp: Effort & Inspection: normal respiratory effort and able to speak in complete sentences Auscultation: clear to auscultation bilaterally, no crackles, no rales, no rhonchi and no wheezes Cardio: Rate: regular rate Rhythm: regular rhythm Heart sounds: S1 norm al heart sound present and S2 normal heart sound present GI: Inspection: normal to inspection Skin: General skin exam: normal color and no rashes or lesions noted Neuro: General: patient oriented x3 and moves all extremities Cranial nerves: Yes Equal, round and reactive pupils present Speech: normal speech Gait exam (Neuro): Normal gait present Extrem: General: normal to inspection, full ROM and no edema Psych: Appearance: grossly normal and well kempt Mental Status: mental status grossly normal Speech and movement: Normal speech and movement present Affect: normal affect Attitude: cooperative Thought process: Normal thought process present Course Course Emergency Course: Patient is aware of diagnosis, understands and agrees to treatment plan. Anticipatory guidance given. Patient agrees to follow-up as directed and is aware of reasons to seek care at the emergency department. Portions of this record may have been created with voice recognition software Level of Care: Express Care Visit Vital Signs Vital signs: Vital Signs Temperature 36.4 C L 08/21/25 19:25 Pulse Rate 84 08/21/25 19:25 Respiratory Rate 18 08/21/25 19:25 Blood Pressure 126/83 08/21/25 19:25 Pulse Oximetry 98 08/21/25 19:25 Oxygen Delivery Room Air 08/21/25 19:25 Temperature 36.4 C L 08/21/25 19:25 Pulse Rate 84 08/21/25 19:25 Respiratory Rate 18 08/21/25 19:25 Blood Pressure 126/83 08/21/25 19:25 Pulse Oximetry 98 08/21/25 19:25 Oxygen Delivery Room Air 08/21/25 19:25 [facility] Narrative Medical decision making narrative: Rapid COVID, flu were negative. Symptoms likely viral in etiology. Pt well hydrated appearing, in no respiratory distress, hemodynamically stable. Recommend supportive care. The patient is stable at time of discharge the clinical impression was discussed and the patient was given the opportunity to ask questions, which were addressed as completely as possible given the information available at present. Anticipatory guidance and return to care precautions were discussed and the importance of primary care follow-up was stressed and encouraged. The patient voiced understanding of the plan, indications to return, and the need for follow-up. Exam findings show no acute concerns or changes Patient is appropriate for outpatient treatment and follow-up. Differential Diagnosis Differential Diagnosis: Differential diagnosis considered: Ragland virus, strep pharyngitis, allergic rhinitis, upper respiratory tract infection, sinusitis, rhinosinusitis, nasopharyngitis. viral pharyngitis, otitis media, otitis externa, otitis effusion, foreign body, cerumen impaction, viral syndrome, and influenza. Medical Records I have reviewed the following patient records and this information was taken into consideration when formulating the assessment and plan.: previous clinic visits Lab Data [facility] Lab Attestation statement: I personally reviewed the patient's lab results. Labs: Lab Results 12/28/25 Range/Units 19:39 POC Influenza A Ag Negative (Negative) POC Influenza B Ag Negative (Negative) POC SARS CoV-2 Ag Negative (Negative) Discharge Plan Discharge Clinical Impression: Upper respiratory infection Qualifiers: URI type: unspecified viral URI Qualified Code(s): J06.9 - Acute upper respiratory infection, unspecified Patient Disposition: Home Condition: Stable Instructions: Upper Respiratory Infection (ED) Additional Instructions: Your Covid and flu are both negative Your symptoms are likely due to a viral illness, which is not treated with antibiotics. Viral symptoms can be present for up to a few weeks. -For pain/fever, you may take: Tylenol 650-1000mg by mouth every 4-6 hours. Do not exceed 4000mg in 24 hours. Advil (Ibuprofen) 600 mg by mouth every 6 hours. Do not exceed 2400mg in 24 hours. 8 AM: Tylenol 11 AM: Ibuprofen 2 PM: Tylenol 5 PM: Ibuprofen 8 PM: Tylenol 11 PM: Ibuprofen 2 AM: Tylenol 5 AM: Ibuprofen -Antihistamine medication such as Benadryl/Zyrtec at night and Claritin/Gladys during the day can help improve symptoms. -Use Flonase twice a day for 5 days then daily to help reduce the inflammation and dry up your sinuses. -You can also use Sudafed behind the pharmacy counter(12 or 24 hour). Be sure to drink plenty of water with these medications at least 8 ounces with every dose and it is important to drink 8 to 10 glasses of water per day. Water is a natural decongestant -Eat and drink things that are easy to swallow, like tea or soup, or popsicles. -Oral rinses such as: Salt water gargles and/or may use topical anesthetic (eg. Chloraseptic spray) or lozenges to relieve dryness or throat pain). -Frequent hand washing or hand mold loft worker is one of the best ways to prevent spread of infection. -Using a vaporizer or humidifier at night will also help thin secretions and help with coughing up phlegm. Call your Primary Care Doctor and make a follow-up appointment in 3 days. If your cough worsens, you develop a fever greater than 103, you develop shaking chills, a fast heartbeat, trouble breathing and/or feel you are are breathing much faster than usual, call your Primary Care Doctor or go to the ER. Patient Language: Egyptian Prescriptions: No Action No Home Medications Follow-up/Referrals: Siddhartha Montes MD [Physician, Family Practice] - 3 Days Referral Note: establish Stand Alone Forms: Work/School Release IP Time of Disposition: 19:43
[2025-08-21 19:25] VITALS: BP 126/83; PULSE 84; RESP 18; TEMP 36.4; O2SAT 98
[2025-08-21 19:41] LABS: EDCOVIDSCREEN Negative (Negative); EDINFLUASCREEN Negative (Negative); EDINFLUBSCREEN Negative (Negative)
== END 2025-08-21 19:49 | disposition home or self-care (01) ==
PROVIDERS: Emergency Provider Nurse Practitioner Family
DX: J06.9 Acute upper respiratory infection, unspecified (principal); Z20.822 Contact with and (suspected) exposure to COVID-19
CPT/HCPCS: 87426; 87804; 99212; G0463